=== PATIENT | male | born 1945 | race Hispanic/Latino ===

== ENCOUNTER 2017-08-11 11:07 | Emergency (ER) | payer MEDICARE, OTHER ==
[2017-08-11 11:11] VITALS: RESP 18; TEMP 98.6; O2SAT 95; BMI 30.5
[2017-08-11 12:06] LABS: VENOUS BLOOD GAS BASE EXCESS 1.9 mmol/L (0.0-2.0); VENOUS BLOOD GAS PO2 154 mm/Hg (30-55); VENOUS BLOOD PH 7.42 (7.32-7.43)
[2017-08-11 12:11] LABS: BASO # 0.03 K/mm3 (0.0-2.0); BASO % 0.4 % (0.0-3.0); EOS # 0.3 (0.0-0.7); EOS % 3.8 % (1.5-5.0); GRAN # 5.38 (1.4-6.5); GRAN % 77.6 % (50.0-68.0); HEMOGLOBIN 17.1 g/dL (14.0-18.0); LYMPH # 0.7 (1.2-3.4); LYMPH % 10.1 % (22.0-35.0); MEAN CELL VOLUME 81.8 fl (80.0-105.0); MEAN CORPUSCULAR HEMOGLOBIN 27.1 pg (25.0-35.0); MEAN CORPUSCULAR HGB CONC 33.1 g/dl (31.0-37.0); MEAN PLATELET VOLUME 11.3 fl (7.0-11.0); MONO # 0.6 (0.1-0.6); MONO % 8.1 % (1.0-6.0); RBC 6.31 10^6/uL (3.5-6.1); RED CELL DISTRIBUTION WIDTH 14.3 % (11.5-14.5); WHITE BLOOD COUNT 6.9 10^3/ul (4.5-11.0)
--- NOTE | 2017-08-11 12:21 | RAD ---
HISTORY: 72yoM, mild sob with exertion COMPARISON: No prior. FINDINGS: LUNGS: No active pulmonary disease. PLEURA: No significant pleural effusion identified, no pneumothorax apparent. CARDIOVASCULAR: Normal. OSSEOUS STRUCTURES: No significant abnormalities. VISUALIZED UPPER ABDOMEN: Normal. OTHER FINDINGS: None. IMPRESSION: No active disease.
[2017-08-11 12:23] LABS: ALBUMIN 3.7 g/dL (3.0-4.8); ALT/SGPT 69 U/L (7-56); AST/SGOT 55 U/L (17-59); BLOOD UREA NITROGEN 25 mg/dL (7-21); CALCIUM 9.7 mg/dL (8.4-10.5); GFR AFRICAN-AMERICAN > 60; GFR NON-AFRICAN AMERICAN 54; INR 1.12 (0.93-1.08); PARTIAL THROMBOPLASTIN TIME 30.9 Seconds (25.1-36.5); PROTHROMBIN TIME 12.9 SECONDS (9.4-12.5)
--- NOTE | 2017-08-11 12:23 | ED PDOC ---
Arrival/HPI - General Chief Complaint: Shortness Of Breath Time Seen by Provider: 08/11/17 11:33 Historian: Patient, Family - History of Present Illness Narrative History of Present Illness (Text): 72yoM, who is with daughter, and states using new detergent care and noted facial swelling/generalized rash and using benadryl, and has had some intermittent difficulty breathing with exertion with dizziness/lightheadedness but no chest pain/abdomen pain/numbness/tingling/loss of limb function/headache/ pain with urination. 08/11/17 12:20 Time/Duration: 1 week Symptom Onset: Gradual Symptom Course: Intermittent Quality: Other (no pain) Activities at Onset: Rest Context: Sitting Past Medical History - Provider Review Nursing Documentation Reviewed: Yes - Travel History Have you recently traveled outside [place] w/in the past 3 mons?: No - Infectious Disease Hx of Infectious Diseases: None - Psychiatric Hx Substance Use: No - Anesthesia Hx Anesthesia: No Family/Social History - Physician Review Nursing Documentation Reviewed: Yes Family/Social History: No Known Family HX Smoking Status: Unknown If Ever Smoked Hx Alcohol Use: No Hx Substance Use: No Allergies/Home Meds Allergies/Adverse Reactions: Allergies No Known Allergies Allergy (Verified 08/11/17 11:13) Home Medications: Home Meds Medication Instructions Recorded Confirmed No Known Home Med 08/11/17 08/11/17 Review of Systems - Review of Systems Constitutional: Normal Eyes: Normal ENT: Normal Respiratory: SOB Cardiovascular: Normal Gastrointestinal: Normal, Anorexia Musculoskeletal: Normal Skin: Rash Neurological: Dizziness Endocrine: Normal Hemo/Lymphatic: Normal Psychiatric: Normal Physical Exam Vital Signs Reviewed: Yes Vital Signs Temp Pulse Resp BP Pulse Ox 08/11/17 11:34 18 08/11/17 11:10 98.6 F 108 H 18 124/96 H 95 Temperature: Afebrile Blood Pressure: Hypertensive Pulse: Regular Respiratory Rate: Normal Appearance: Positive for: Well-Appearing, Non-Toxic, Comfortable Pain Distress: None Mental Status: Positive for: Alert and Oriented X 3 - Systems Exam Head: Present: Atraumatic, Normocephalic Pupils: Present: PERRL Extroacular Muscles: Present: EOMI Conjunctiva: Present: Normal Ears: Present: Normal Mouth: Present: Moist Mucous Membranes Pharnyx: Present: Normal Nose (External): Present: Atraumatic Nose (Internal): Present: Normal Inspection Neck: Present: Normal Range of Motion Respiratory/Chest: Present: Clear to Auscultation, Good Air Exchange Cardiovascular: Present: Regular Rate and Rhythm Abdomen: No: Tenderness, Distention, Normal Bowel Sounds, Peritoneal Signs, Rebound, Guarding, McBurney's Point Tender, Rovsing's Sign Present, Hernias, Feeding Tubes, Ostomy Tubes, Mass/Organomegaly, Scars, Other Back: Present: Normal Inspection Upper Extremity: Present: Normal Inspection Lower Extremity: Present: Normal Inspection Neurological: Present: GCS=15, CN II-XII Intact, Speech Normal, Motor Func Grossly Intact Skin: Present: Rashes, Other (generalized mild subtle fine rash wo erythema/ fluctuance/crepitis, secondarily with mild facial swelling wo oral swelling/ edema/fluctuance and is wide open airway, speaking normally) Psychiatric: Present: Alert, Oriented x 3, Normal Insight, Normal Concentration Medical Decision Making ED Course and Treatment: 72yoM, who is with daughter, and states using new detergent care and noted facial swelling/generalized rash and using benadryl, and has had some intermittent difficulty breathing with exertion with dizziness/lightheadedness but no chest pain/abdomen pain/numbness/tingling/loss of limb function/headache/ pain with urination. no oral symptoms. no other new foods/travel/prior blood clots/cancer history. pt sent by PMD Dr. Bobby for troponin elevated .15. wbc 6.9 hb 17 plts 213 lactic 1.4 bilirubin 1.4 Trop 0.04 indeterminate BNP 3030 CXR no active disease ECG: sinus tachycardia with PACs, RBBB. flipped t waves ii, iii, avr, v1, v2, v3 , v4, v5. 08/11/17 12:34 08/11/17 12:[address] Bobby 08/11/17 12:46 08/11/17 13:[address] Bobby who stated no ECG changes from prior and pt with likely new onset CHF and to admit, and cardiology consultation w Dr. Shah but patient refused and cautioned for complications/ and he wanted to go to another hospital per daughters' request as she knows some cardiologists. Reassessment Condition: Re-examined, Improved - Lab Interpretations Lab Results: 08/11/17 11:50 08/11/17 11:50 Lab Results 08/11/17 11:50: pO2 154 H, VBG pH 7.42, VBG pCO2 41.0, VBG HCO3 26.6, VBG Total CO2 27.9, VBG O2 Sat (Calc) 100.2 H, VBG Base Excess 1.9, VBG Potassium 4.2, Sodium 135.0, Chloride 102.0, Glucose 124 H, Lactate 1.4, FiO2 21.0, Venous Blood Potassium 4.2 08/11/17 11:50: Sodium 138, Chloride 102, Potassium 4.1, Carbon Dioxide 26, Anion Gap 14, BUN 25 H, Creatinine 1.3, Est GFR ( Amer) > 60, Est GFR ( Non-Af Amer) 54, Random Glucose 129 H, Calcium 9.7, Magnesium 2.2, Total Bilirubin 1.4 H, AST 55, ALT 69 H, Alkaline Phosphatase 110, Lactate Dehydrogenase 520, Total Creatine Kinase 80, Troponin I 0.04, NT-Pro-B Natriuret Pep 3030 H, Total Protein 7.4, Albumin 3.7, Globulin 3.7, Albumin/ Globulin Ratio 1.0 L 08/11/17 11:50: PT 12.9 H, INR 1.12 H, APTT 30.9 08/11/17 11:50: WBC 6.9, RBC 6.31 H, Hgb 17.1, Hct 51.6, MCV 81.8, MCH 27.1, MCHC 33.1, RDW 14.3, Plt Count 213, MPV 11.3 H, Gran % 77.6 H, Lymph % (Auto) 10.1 L, [place] % (Auto) 8.1 H, Eos % (Auto) 3.8, Baso % (Auto) 0.4, Gran # 5.38, Lymph # (Auto) 0.7 L, [place] # (Auto) 0.6, Eos # (Auto) 0.3, Baso # (Auto) 0.03 I have reviewed the lab results: Yes - RAD Interpretation Radiology Orders: 08/11/17 11:34 CHEST PORTABLE [RAD] Stat Hospital Admissions Clerk: Radiologist (see mdm) Disposition/Present on Arrival - Present on Arrival Any Indicators Present on Arrival: No History of DVT/PE: No History of Uncontrolled Diabetes: No Urinary Catheter: No History of Decub. Ulcer: No History Surgical Site Infection Following: None - Disposition Have Diagnosis and Disposition been Completed?: Yes Diagnosis: CHF (congestive heart failure) Disposition: AGAINST MEDICAL ADVICE Disposition Time: 13:16 Condition: STABLE Discharge Instructions (ExitCare): Heart Failure (ED), Heart Failure, Adult, Heart Failure, Adult (DC) Referrals: Wilfrid Bobby MD [Primary Care Provider] - Follow up with primary Forms: [employer] (Persian)
[2017-08-11 12:29] LABS: B-TYPE NATRIURETIC PEPTIDE 3030 pg/mL (0-450); TROPONIN I 0.04 ng/mL
[2017-08-11 13:23] VITALS: BP 131/80; PULSE 102
[2017-08-11 13:44] LABS: URINE BILIRUBIN SMALL (NEGATIVE); URINE BLOOD SMALL (NEGATIVE); URINE GLUCOSE (UA) NEGATIVE (NEGATIVE); URINE LEUKOCYTE ESTERASE NEGATIVE Leu/uL (NEGATIVE); URINE PROTEIN 100 mg/dL (<30 mg/dL)
[2017-08-11 13:45] LABS: URINE APPEARANCE CLEAR (CLEAR); URINE COLOR YELLOW (YELLOW)
[2017-08-11 14:11] LABS: URINE BACTERIA TRACE (NEG); URINE EPITHELIAL CELLS 0 - 2 /hpf (0-5); URINE RBC 0 - 2 /hpf (0-2); URINE WBC 0 - 2 /hpf (0-6)
--- NOTE | 2017-08-11 20:52 | CARD ---
APPROVED REPORT EKG Measurement Heart [id number] <Conclusion> Sinus tachycardia with premature atrial complexes Right bundle branch block Abnormal ECG
== END 2017-08-11 13:23 | disposition left against medical advice (07) ==
LOC: ED 11:07
DX: I50.9 Heart failure, unspecified (principal)